=== PATIENT | male | born 1985 | race Caucasian/White ===

== ENCOUNTER 2018-10-24 12:03 | Emergency (ER) | payer BC ==
[2018-10-24 12:38] VITALS: BP 125/72
--- NOTE | 2018-10-24 13:02 | UC ---
Throat Pain/Nasal Drake HPI - HPI Summary HPI Summary: Pt presents with c/o sore throat X 7 days. Pt staes that throat is more painful , that his face aches now and that is throat feels "like a mofo". Pt reports pain with swallowing is worsening. Freddie fever or chills. - History of Current Complaint Chief Complaint: UCGeneralIllness Stated Complaint: ST,RT EAR COMPLAINT Time Seen by Provider: 10/24/18 12:47 Hx Obtained From: Patient Onset/Duration: Gradual Onset, Lasting Days, Still Present, Worse Since - osnet Severity: Severe Pain Intensity: 10 Cough: None Associated Signs & Symptoms: Positive: Dysphagia - Epiglottits Risk Factors Epiglottis Risk Factors: Negative - Allergies/Home Medications Allergies/Adverse Reactions: Allergies Allergy/AdvReac Type Severity Reaction Status Date / Time No Known Allergies Allergy Verified 10/24/18 12:38 Home Medications: Home Medications Ibuprofen [Advil] 600 mg PO Q6HR PRN 10/24/18 [History Confirmed 10/24/18] PMH/Surg Hx/FS Hx/Imm Hx Previously Healthy: Yes - Surgical History Surgical History: Yes Surgery Procedure, Year, and Place: Appendectomy, 1997, [facility] - Family History Known Family History: Positive: Cardiac Disease - Social History Occupation: Employed Full-time Lives: With Family Alcohol Use: Occasionally Substance Use Type: None Smoking Status (MU): Former Smoker Type: Cigarettes Amount Used/How Often: 1/2 PPD Length of Time of Smoking/Using Tobacco: On and Off 10 Years Have You Smoked in the Last Year: Yes - Immunization History Most Recent Influenza Vaccination: Not the Vaccination Up to Date: No Review of Systems All Other Systems Reviewed And Are Negative: Yes Constitutional: Positive: Negative Skin: Positive: Negative Eyes: Positive: Negative ENT: Positive: Sore Throat Respiratory: Positive: Negative Cardiovascular: Positive: Negative Gastrointestinal: Positive: Negative Genitourinary: Positive: Negative Motor: Positive: Negative Neurovascular: Positive: Negative Musculoskeletal: Positive: Negative Neurological: Positive: Negative Psychological: Positive: Negative Is Patient Immunocompromised?: No Physical Exam Triage Information Reviewed: Yes Appearance: Pain Distress Vital Signs: Initial Vital Signs Temp 97.9 F 10/24/18 12:34 Pulse 73 10/24/18 12:34 Resp 16 10/24/18 12:34 BP 125/72 10/24/18 12:34 Pulse Ox 99 10/24/18 12:34 Vital Signs Reviewed: Yes Eye Exam: Normal ENT: Positive: Tonsillar swelling - right tonsil, large tonsil stone in right tonsil, Tonsillar exudate - right tonsil Dental Exam: Normal Neck exam: Normal Respiratory Exam: Normal Cardiovascular Exam: Normal Musculoskeletal Exam: Normal Neurological Exam: Normal Psychological Exam: Normal Skin Exam: Normal Throat Pain/Nasal Course/Dx - Course Course Of Treatment: I discussed my concern about a peritonsilar abscess, pt verbalized understanding and agreed to plan of care. - Differential Dx/Diagnosis Differential Diagnosis/HQI/PQRI: Mononucleosis, Peritonsillar Abscess, Tonsillitis Provider Diagnosis: Acute tonsillitis Discharge - Sign-Out/Discharge Documenting (check all that apply): Patient Departure All imaging exams completed and their final reports reviewed: No Studies - Discharge Plan Condition: Stable Disposition: HOME Prescriptions: Penicillin VK 500 MG TAB(NF) [Penicillin VK 500 mg Tab] 500 mg PO Q6H #40 tab predniSONE TAB* [Deltasone 10 MG TAB*] 30 mg PO DAILY #12 tab Patient Education Materials: Tonsillitis (ED) Referrals: [facility] [Outside] Shane Farrell MD [Medical Doctor] - As Soon As Possible No Primary Care Phys,NOPCP [Primary Care Provider] - Additional Instructions: Please make an appointment to see an Ear, nose and throat specialist as soon as possible. If your symptoms worsen, please go directly to the closest emergency room immediately. - Billing Disposition and Condition Condition: STABLE Disposition: Home - Attestation Statements Provider Attestation: Per institutional requirements, I have reviewed the chart, however, I was not consulted specifically or made aware of this patient by the midlevel provider. I did not personally evaluate, interact with , or disposition this patient.
== END 2018-10-24 13:12 | disposition home or self-care (01) ==
LOC: UCCORT 12:03
DX: J03.90 Acute tonsillitis, unspecified (principal); Z87.891 Personal history of nicotine dependence
CPT/HCPCS: 87651; 99202; G0463